=== PATIENT | male | born 1955 | race Caucasian/White ===

== ENCOUNTER → 2022-09-10 | Outpatient (CLI) | payer BC, MEDICARE ==
[~2022-09-10] MED LIST: LISI10TA22
== END ==
LOC: M LABSMTC 10:23
PROVIDERS: ATTEND Anesthesiology
DX: Z01.812 Encounter for preprocedural laboratory examination (principal); Z20.822 Contact with and (suspected) exposure to COVID-19

== ENCOUNTER 2022-09-14 10:10 | Day surgery (SDC) | payer MEDICARE ==
[~2022-09-14] VITALS: Ht 172.7 cm; Wt 102.1 kg
[~2022-09-14 10:10] MED LIST changes: +NS 1,000 ML IV ONE
[2022-09-14] MEDS ORDERED: LIDOCAINE 2% 100MG/5ML SDV (FOR ANES.) As Ordered ONE (11:29)
[2022-09-14] MEDS ORDERED: propofoL 200 MG/20 ML VIAL As Ordered ONE (11:29)
[2022-09-14 12:00] VITALS: BP 128/74
== END 2022-09-14 12:09 | disposition home or self-care (01) ==
LOC: M OPP 10:10
PROVIDERS: ATTEND Surgery
DX: Z86.010 Personal history of colon polyps (principal); I10 Essential (primary) hypertension; G43.909 Migraine, unspecified, not intractable, without status migrainosus; G47.30 Sleep apnea, unspecified; N40.0 Benign prostatic hyperplasia without lower urinary tract symptoms; Z79.899 Other long term (current) drug therapy